=== PATIENT | male | born 1990 | race Caucasian/White ===

== ENCOUNTER 2018-01-04 22:17 | Emergency (ER) | payer OTHER ==
[2018-01-04] MEDS ORDERED: ISOVUE-370 76% 100ML VIAL (Q9967) As Ordered (23:09)
[2018-01-04] MEDS: NS 1,000 ML IV (23:15)
[2018-01-04 23:56] LABS: BASO # 0.1 10^3/uL (0.0-0.2); BASO % 0.5 % (0.0-1.0); EOS # 0.1 10^3/uL (0.0-0.50); EOS % 0.8 % (0.0-3.0); HEMATOCRIT 44.3 % (42.0-52.0); HEMOGLOBIN 15.6 g/dl (13.5-17.5); IMMATURE GRANULOCYTE % 0.4 % (0-3.0); LYMPH % 15.5 % (24.0-44.0); MEAN CORPUSCULAR HEMOGLOBIN 31.7 pg (27.0-33.0); MEAN CORPUSCULAR HGB CONC 35.2 g/dl (32.0-36.5); MONO # 0.9 10^3/uL (0.0-0.8); MONO % 7.2 % (0.0-5.0); NEUTROPHILS # 9.8 10^3/uL (1.8-7.7); NEUTROPHILS % 75.6 % (36.0-66.0); PLATELET COUNT, AUTOMATED 203 10^3/uL (150-450); RED BLOOD COUNT 4.92 10^6/uL (4.30-6.10); RED CELL DISTRIBUTION WIDTH 12.6 % (11.5-14.5)
[2018-01-05 00:23] LABS: ANION GAP 7 MEQ/L (8-16); BLOOD UREA NITROGEN 14 MG/DL (7-18); CALCIUM LEVEL 8.8 MG/DL (8.5-10.1); CARBON DIOXIDE LEVEL 27 MEQ/L (21-32); CHLORIDE LEVEL 112 MEQ/L (98-107); CREATININE FOR GFR 1.28 MG/DL (0.70-1.30); GLOMERULAR FILTRATION RATE > 60.0 (>60); GLUCOSE, FASTING 86 MG/DL (70-100); POTASSIUM SERUM 4.1 MEQ/L (3.5-5.1); SODIUM LEVEL 146 MEQ/L (136-145)
[2018-01-05 00:24] LABS: ALBUMIN/GLOBULIN RATIO 1.25 (1.00-1.93); ALKALINE PHOSPHATASE 99 U/L (45-117); ALT/SGPT 17 U/L (12-78); AMYLASE 58 U/L (25-115); AST/SGOT 16 U/L (7-37); BILIRUBIN,DIRECT 0.1 MG/DL (0.0-0.2); BILIRUBIN,TOTAL 0.5 MG/DL (0.2-1.0); LIPASE 105 U/L (73-393); TOTAL PROTEIN 7.2 GM/DL (6.4-8.2)
== END 2018-01-05 01:47 | disposition home or self-care (01) ==
LOC: M ED 22:17
DX: K92.1 Melena (principal); R10.11 Right upper quadrant pain; R10.31 Right lower quadrant pain; R01.1 Cardiac murmur, unspecified; Z88.0 Allergy status to penicillin; F17.210 Nicotine dependence, cigarettes, uncomplicated
CPT/HCPCS: Q9967

== ENCOUNTER 2022-12-24 10:49 | Emergency (ER) | payer MEDICAID, OTHER, SELFPAY ==
[~2022-12-24] VITALS: Ht 190.5 cm; Wt 97.0 kg
[2022-12-24 10:49] VITALS: BP 146/80
[2022-12-24] MEDS ORDERED: NAPR-837 PO (14:43)
[2022-12-24] MEDS ORDERED: CYCL-707 PO (14:43)
== END 2022-12-24 15:05 | disposition home or self-care (01) ==
LOC: M ED 12:29
DX: M54.9 Dorsalgia, unspecified (principal); M62.830 Muscle spasm of back; Z88.0 Allergy status to penicillin; Z79.899 Other long term (current) drug therapy